=== PATIENT | male | born 1995 | race Caucasian/White ===

== ENCOUNTER 2018-12-19 22:16 | Emergency (ER) | payer SELFPAY ==
[~2018-12-19] VITALS: Ht 177.8 cm; Wt 68.0 kg
[2018-12-19 22:16] VITALS: BP 137/52
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
[2018-12-19] MEDS ORDERED: Haloperidol 5mg/ml Inj IM ONE (22:30)
[2018-12-20 01:35] VITALS: BP 135/53
--- NOTE | 2018-12-20 02:10 | NUR ---
ED Nurse Note: Pt asleep. No distress noted. Will continue to monitor.
[2018-12-20 03:50] VITALS: BP 128/55
[2018-12-20 05:27] VITALS: BP 130/58
--- NOTE | 2018-12-20 05:43 | NUR ---
ED Nurse Note: Pt cleared by health care Provider for discharge. DC instructions/prescription was explained to pt but pt refused to sign. All medical deviecs such as ID band removed. Pt is AAO x4, ambulatory and left with all personal belongings.
== END 2018-12-20 05:42 | disposition home or self-care (01) ==
LOC: EDBD 22:16 → EMR 22:30
DX: F10.129 Alcohol abuse with intoxication, unspecified (principal)
CPT/HCPCS: 96372; 99283; J1630